=== PATIENT | male | born 1945 | race Caucasian/White ===

== ENCOUNTER 2019-02-06 15:41 | Emergency (ER) | payer MEDICARE, OTHER ==
[2019-02-06 16:12] VITALS: BP 113/53
--- NOTE | 2019-02-06 16:42 | UC ---
FLU HPI - HPI Summary HPI Summary: Pt presents with request to be tested for flu. Pt's was diagnosed on with influenza A and pt was prescribed tamiflu 75 mg PI Q12H by PCP as prophylactic dosing. Pt states that he was feeling "sick on 02/02/19 but has improved over the last 3 days. Pt denies fever, chills, nausea vomiting, has occasional cough and PND. - History of Current Complaint Chief Complaint: UCGeneralIllness Stated Complaint: COUGH, FATIGUE Time Seen by Provider: 02/06/19 16:22 Hx Obtained From: Patient Onset/Duration: Sudden Onset, Lasting Days, Resolved Severity Currently: Mild Severity Initially: Moderate Pain Intensity: 0 Associated Signs & Symptoms: Positive: Fever, Cough, Nasal Congestion Related Hx: Possible Flu/Infectious Exposure - Risk Factors Influenza Risk Factors: Negative - Allergy/Home Medications Allergies/Adverse Reactions: Allergies Allergy/AdvReac Type Severity Reaction Status Date / Time No Known Allergies Allergy Verified 02/06/19 16:13 Home Medications: Home Medications Amlodipine Besylate [Norvasc] 5 mg PO DAILY 02/06/19 [History Confirmed 02/06/19 ] Atorvastatin* [Lipitor*] 40 mg PO 1700 02/06/19 [History Confirmed 02/06/19] Carvedilol TAB* [Coreg TAB*] 6.25 mg PO BID 02/06/19 [History Confirmed 02/06/19 ] Enalapril/Hydrochlorothiazide [Enalapril-Hctz 10-25 mg Tablet] 1 each PO DAILY 02/06/19 [History Confirmed 02/06/19] LORazepam [Lorazepam] 0.5 mg PO TID PRN 02/06/19 [History Confirmed 02/06/19] Oseltamivir CAP* [Tamiflu CAP*] 75 mg PO BID 02/06/19 [History Confirmed ] PMH/Surg Hx/FS Hx/Imm Hx Previously Healthy: Yes Cardiovascular History: Cardiac Disease, Hypertension - Surgical History Surgical History: Yes Surgery Procedure, Year, and Place: 2 angioplasty. 1 cardiac stent - Family History Known Family History: Positive: Cardiac Disease - Social History Occupation: Retired Lives: With Family Alcohol Use: Occasionally Substance Use Type: None Smoking Status (MU): Never Smoked Tobacco Review of Systems All Other Systems Reviewed And Are Negative: Yes Constitutional: Positive: Fever - resolved, Chills - resolved, Fatigue Skin: Positive: Negative Eyes: Positive: Negative ENT: Positive: Sinus Congestion Respiratory: Positive: Cough Cardiovascular: Positive: Negative Gastrointestinal: Positive: Negative Genitourinary: Positive: Negative Motor: Positive: Negative Neurovascular: Positive: Negative Musculoskeletal: Positive: Negative Neurological: Positive: Negative Psychological: Positive: Negative Is Patient Immunocompromised?: No Physical Exam Triage Information Reviewed: Yes Appearance: Well-Appearing Vital Signs: Initial Vital Signs Temp 97.7 F 02/06/19 16:08 Pulse 73 02/06/19 16:08 Resp 16 02/06/19 16:08 BP 113/53 02/06/19 16:08 Pulse Ox 99 02/06/19 16:08 Vital Signs Reviewed: Yes Eye Exam: Normal ENT: Positive: Nasal congestion Dental Exam: Normal Neck exam: Normal Respiratory Exam: Normal Cardiovascular Exam: Normal Musculoskeletal Exam: Normal Neurological Exam: Normal Psychological Exam: Normal Skin Exam: Normal Flu Course/Dx - Course Course Of Treatment: I discussed with the pt that his symptoms had improved an/or resolved that he should continue with what he was currently doing and that if symptoms returned or [facility] or return to clinic. Pt verbalized understanding and agreed to plan of care. - Differential Dx/Diagnosis Differential Diagnosis/HQI/PQRI: Influenza, Upper Respiratory Infection Provider Diagnosis: Viral syndrome Discharge - Sign-Out/Discharge Documenting (check all that apply): Patient Departure All imaging exams completed and their final reports reviewed: No Studies - Discharge Plan Condition: Stable Disposition: HOME Patient Education Materials: Viral Syndrome (ED) Referrals: Chapito Tan MD [Primary Care Provider] - If Needed Additional Instructions: Please follow up with your PCP as soon as possible. If your symptoms do not imporve and worsen, please seek care at the closest healthcare facility. - Billing Disposition and Condition Condition: STABLE Disposition: Home - Attestation Statements Provider Attestation: Per institutional requirements, I have reviewed the chart, however, I was not consulted specifically or made aware of this patient by the midlevel provider. I did not personally evaluate, interact with , or disposition this patient.
== END 2019-02-06 16:49 | disposition home or self-care (01) ==
LOC: UCCORT 15:41
DX: B34.9 Viral infection, unspecified (principal); R09.82 Postnasal drip; R09.81 Nasal congestion; I10 Essential (primary) hypertension; Z79.899 Other long term (current) drug therapy
CPT/HCPCS: 99211; G0463

== ENCOUNTER 2019-10-05 12:00 | Emergency (ER) | payer MEDICARE ==
[2019-10-05 12:25] VITALS: BP 140/69
--- NOTE | 2019-10-05 13:19 | UC ---
Knee Pain HPI - HPI Summary HPI Summary: 74-year-old male comes in with a chief complaint of left knee pain for the last 4-5 days. Pains in the anterior portion of the knee. The worst pain is just above the kneecap. Patient's had this pain before several months ago and was treated with physical therapy and improved. No specific injury. Pain is worse with bending of the knee. No swelling appreciated. Feels well otherwise. - History of Current Complaint Chief Complaint: UCLowerExtremity Stated Complaint: L KNEE COMP Time Seen by Provider: 10/05/19 13:17 Pain Intensity: 6 - Allergies/Home Medications Allergies/Adverse Reactions: Allergies Allergy/AdvReac Type Severity Reaction Status Date / Time No Known Allergies Allergy Verified 10/05/19 12:16 Home Medications: Home Medications Acetaminophen [Tylenol Extra Strength] 500 mg PO ONCE 10/05/19 [History Confirmed 10/05/19] Aspirin 325 mg PO DAILY 10/05/19 [History Confirmed 10/05/19] Naproxen Sodium [Aleve] 440 mg PO ONCE 10/05/19 [History Confirmed 10/05/19] PMH/Surg Hx/FS Hx/Imm Hx Previously Healthy: Yes Endocrine History: Dyslipidemia Cardiovascular History: Hypertension - Surgical History Surgical History: Yes Surgery Procedure, Year, and Place: 2 angioplasty. 1 cardiac stent. bilateral cataract. L eye cautery - Family History Known Family History: Positive: Cardiac Disease - Social History Alcohol Use: None Substance Use Type: None Smoking Status (MU): Never Smoked Tobacco Review of Systems All Other Systems Reviewed And Are Negative: Yes Constitutional: Positive: Negative Skin: Positive: Negative Eyes: Positive: Negative ENT: Positive: Negative Respiratory: Positive: Negative Cardiovascular: Positive: Negative Gastrointestinal: Positive: Negative Motor: Positive: Negative Neurovascular: Positive: Negative Musculoskeletal: Positive: Other: - SEE HPI Neurological: Positive: Negative Psychological: Positive: Negative Is Patient Immunocompromised?: No Physical Exam Triage Information Reviewed: Yes Appearance: Well-Appearing, No Pain Distress, Well-Nourished Vital Signs: Initial Vital Signs Temp 98.4 F 10/05/19 12:18 Pulse 74 10/05/19 12:18 Resp 16 10/05/19 12:18 BP 140/69 10/05/19 12:18 Pulse Ox 100 10/05/19 12:18 Vital Signs Reviewed: Yes Eye Exam: Normal Eyes: Positive: Conjunctiva Clear Neck: Positive: Supple Respiratory: Positive: No respiratory distress Musculoskeletal: Positive: Other: - Left knee does not show any effusion. Minimal tenderness to palpation with range of motion of the patella. There is tenderness to palpation in the proximal aspect of the patella into the patellar quadriceps tendon. The rest of the knee is nontender stable to exam negative Allison's. Neurological: Positive: Alert Psychological: Positive: Age Appropriate Behavior Skin Exam: Normal Knee Pain Course/Dx - Course Course Of Treatment: [facility] Consultant: Oj Grier F ([id number]) Clearance Representative: ABEL ( NUANCE) Report Date: 10/05/2019 12:56:00 Report Status: Final ====== Start of Report Content Patient Name: RADHA PEREZ Medical Record# : [id number] Ordering Physician: Patricio Brennan MD Acct.#: [id number] : 1945 Age: 74 Sex: M Location: [facility] Exam Date: 10/05/19 1234 ADM Status: REG ER Order Information: KNEE LEFT 4+ VWS Accession Number: [id number] CPT: 98773 INDICATION: Left knee pain. TECHNIQUE: 4 views of the left knee were obtained. FINDINGS: There is anterior soft tissue swelling. The bones are in normal alignment. No joint effusion or fracture is seen. Joint spaces appear maintained. IMPRESSION: NO EVIDENCE FOR FRACTURE. <Electronically signed by Oj Grier MD in OV> 10/05/19 1252 Dictated By: Oj Grier MD Dictated Date/ Time: 10/05/19 1250 Transcribed Date/Time: 10/05/19 125 Copy to: CC:[facility]; Chapito Tan III, MD; Patricio Brennan MD Imaging - [facility] Imaging - [facility] Imaging - [facility] [address] [place], [place] [id number] [place] [id number] [place] [id number] ph ([phone]) ph ([phone]) ph ([phone]) End of Report Content Discussed the x-rays with the patient. Plan is ice anti-inflammatories and follow-up with sports medicine or orthopedics or primary care doctor. - Differential Dx/Diagnosis Provider Diagnosis: Left anterior knee pain Discharge ED - Sign-Out/Discharge Documenting (check all that apply): Patient Departure All imaging exams completed and their final reports reviewed: Yes - Discharge Plan Condition: Stable Disposition: HOME Patient Education Materials: Patellofemoral Pain Syndrome (ED), Knee Pain (ED) Referrals: Chapito Tan MD [Primary Care Provider] - [facility] [Provider Group] Jose Samano MD [Medical Doctor] - Additional Instructions: FOLLOW UP WITH DR SAMANO, ORTHOPEDICS OR SPORTS MEDICINE. GET RECHECKED SOONER IF WORSE OR ANY QUESTIONS OR CONCERNS. - Billing Disposition and Condition Condition: STABLE Disposition: Home
== END 2019-10-05 13:40 | disposition home or self-care (01) ==
LOC: UCCORT 12:00
DX: M25.562 Pain in left knee (principal); I10 Essential (primary) hypertension; Z79.82 Long term (current) use of aspirin
CPT/HCPCS: 99211; G0463